=== PATIENT | male | born 1990 | race Caucasian/White ===

== ENCOUNTER 2018-03-14 09:34 | Emergency (ER) | payer MEDICAID ==
[2018-03-14] MEDS: LIDOCAINE 1% (MPF) 5 ML VIAL INJ (10:48)
[2018-03-14] MEDS: DIPHTH/TET/ACEL PERTUSS (ADULT) 0.5 ML VIAL IM* (10:48)
[2018-03-14] MEDS: CEFAZOLIN 1 GM INJ IM (10:48)
[2018-03-14] MEDS: HYDROCODONE/APAP (5/325) TAB PO (12:47)
== END 2018-03-14 12:56 | disposition home or self-care (01) ==
LOC: FTE 09:34
DX: S62.521B Displaced fracture of distal phalanx of right thumb, initial encounter for open fracture (principal); W01.0XXA Fall on same level from slipping, tripping and stumbling without subsequent striking against object, initial encounter; Y92.89 Other specified places as the place of occurrence of the external cause; Z23 Encounter for immunization
CPT/HCPCS: 12001; 73140; 90471; 90715; 96372; 99284-25